=== PATIENT | male | born 1990 | race Caucasian/White ===

== ENCOUNTER 2025-04-18 21:25 | Emergency (ER) | payer MEDICAID, SELFPAY ==
[2025-04-18 21:29] VITALS: PULSE 92; RESP 18; O2SAT 99; BMI 43.8
[2025-04-18 21:32] VITALS: BP 156/120; PULSE 112; RESP 18; TEMP 37.4; O2SAT 97
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
[2025-04-18] MEDS: KETOROLAC INJ 30 MG/ML VIAL IVP (21:58)
[2025-04-18 22:02] LABS: Basophils # (Auto) 0.1 Thou/mm3 (0.0-0.2); Basophils % (Auto) 0 % (0-2.5); Eosinophils # (Auto) 0.3 Thou/mm3 (0.0-0.5); Eosinophils % (Auto) 2 % (0-10); Hematocrit 43.7 % (41.0-53.0); Hemoglobin 14.7 g/dL (13.5-16.0); Immature Granulocytes Auto 0.06 Thou/mm3 (0.00-0.00); Lymphocytes # (Auto) 2.8 Thou/mm3 (1.0-4.8); Lymphocytes % (Auto) 23 % (10-50); Mean Corpuscular HGB Conc 33.6 g/dl (31.0-37.0); Mean Corpuscular Hemoglobin 28.3 pg (25.0-35.0); Mean Corpuscular Volume 84 fL (80-100); Monocytes # (Auto) 0.6 Thou/mm3 (0.0-0.8); Monocytes % (Auto) 5 % (0-12); Neutrophils # (Auto) 8.1 Thou/mm3 (1.8-7.7); Neutrophils % (Auto) 69 % (37-80); Nucleated Red Blood Cell # 0.00 Thou/mm3 (0.00-0.00); Nucleated Red Blood Cell % 0 /100 WBC (0); Platelet Count 230 Thou/mm3 (140-440); RDW Standard Deviation 40.7 fL (35.1-43.9); Red Blood Count 5.19 Miln/mm3 (4.50-5.90); White Blood Count 11.9 Thou/mm3 (3.8-10.6)
[2025-04-18 22:23] LABS: Alanine Aminotransferase 45 U/L (10-49); Albumin, Serum 4.8 gm/dL (3.5-5.0); Albumin/Globulin Ratio 1.8 (1.2-2.2); Alkaline Phosphatase 71 U/L (46-116); Anion Gap 11 (7-16); Aspartate Amino Transferase 36 U/L (0-34); BUN/Creatinine Ratio 18 Ratio (12-20); Bilirubin,Total 0.4 mg/dL (0.3-1.2); Blood Urea Nitrogen 16 mg/dL (9-23); Calcium 9.5 mg/dL (8.3-10.6); Calcium (Corrected) 9.5 mg/dL (8.5-10.1); Carbon Dioxide 23.4 mMol/L (20.0-31.0); Chloride 108 mMol/L (98-107); Creatinine (Component) 0.9 mg/dL (0.6-1.3); Estimated Creatinine Clearance 150.8 mL/min (>60); Globulin 2.6 gm/dL (2.3-3.5); Glucose 131 mg/dL (74-106); Osmolality,Calculated 286 (275-295); Potassium 3.8 mMol/L (3.4-5.1); Sodium 142 mMol/L (136-145); Total Protein 7.4 gm/dL (5.7-8.2); eGFR > 60 See Note
[2025-04-19 00:25] VITALS: BP 154/97; PULSE 112; RESP 18; TEMP 37.2; O2SAT 97
--- NOTE | 2025-04-19 01:43 | PC.NURSE ---
Patricia faxed over clinicals, face sheet and provides notes, and pushed over imaging to start transfer. Shanique from Transfer center on the phone with MD Bailey for Emtala questions.
--- NOTE | 2025-04-19 01:52 | PC.NURSE ---
Patricia Accepts @[phone] Trauma Surgeon Karen Ortho Surgeon Angel. ED to ED Report to be called at [phone]
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
[2025-04-19 02:02] VITALS: BP 180/101; PULSE 116; RESP 18; TEMP 37.1; O2SAT 96
[2025-04-19 02:50] VITALS: BP 150/93; PULSE 110; RESP 18; O2SAT 97
--- NOTE | 2025-04-19 03:05 | PC.NURSE ---
REPORT CALLED AND GIVEN TO RPI MARINA AT [facility].
== END 2025-04-19 03:10 | disposition short-term general hospital (02) ==
PROVIDERS: Emergency Provider Emergency Medicine; PCP Student in an Organized Health Care Education/Training Program
DX: S32.491A Other specified fracture of right acetabulum, initial encounter for closed fracture (principal); S22.41XA Multiple fractures of ribs, right side, initial encounter for closed fracture; S89.91XA Unspecified injury of right lower leg, initial encounter; S79.911A Unspecified injury of right hip, initial encounter; S36.899A Unspecified injury of other intra-abdominal organs, initial encounter; Z75.1 Person awaiting admission to adequate facility elsewhere
CPT/HCPCS: 36415; 71260; 73502; 73552; 73562; 73590; 74177; 80053; 85025; 96374; 99284; A4649; J1885; Q9967